=== PATIENT | female | born 1990 | race American Indian/Alaskan Native ===

== ENCOUNTER 2019-04-13 19:02 | Observation (INO) | payer OTHER ==
[2019-04-13 20:14] LABS: Bilirubin,Urine NEG (Negative); Blood,Urine NEG (Negative); Color,Urine Yellow (Yellow); Mucus,Urine FEW /HPF
[2019-04-13] MEDS ORDERED: LACTATED RINGERS 1,000 ML IV ONE ×2 (20:30→20:54)
[2019-04-13] MEDS ORDERED: diphenhydrAMINE 50 MG/ML VIAL IV ONE (20:54)
[2019-04-13] MEDS ORDERED: MORPHINE 4 MG/1 ML INJ IV ONE (20:55)
[2019-04-14] MEDS: LACTATED RINGERS 1,000 ML IV SCH ×3 (00:04→21:52)
[2019-04-14 00:19] LABS: Amphetamine Screen,Urine PRESUMPTIVE NEGATIVE; Benzodiazepines Screen,Urine PRESUMPTIVE NEGATIVE; Cannabinoid Screen,Urine PRESUMPTIVE NEGATIVE; Cocaine Screen,Urine PRESUMPTIVE NEGATIVE; Methadone Screen,Urine PRESUMPTIVE NEGATIVE; Opiate Screen,Urine PRESUMPTIVE NEGATIVE
[2019-04-14] MEDS: NalbUPHINE 10 MG/1 ML INJ IV PRN ×5 (01:20→21:30)
[2019-04-14] MEDS: ONDANSETRON 4 MG/2 ML INJ IV PRN ×4 (07:54→21:37)
[2019-04-14 08:49] LABS: Basophils % (Auto) 0.3 % (0.0-1.8); Eosinophils # (Auto) 0.1 K/mm3 (0.0-0.4); Eosinophils % (Auto) 0.8 % (0.0-4.3); Hematocrit 27.7 % (30.3-42.9); Hemoglobin 9.3 gm/dl (10.1-14.3); Lymphocytes # (Auto) 1.7 K/mm3 (1.2-5.4); Lymphocytes % (Auto) 23.5 % (13.4-35.0); Mean Corpuscular HGB Conc 34 % (30-34); Mean Corpuscular Volume 87 fl (79-97); Monocytes # (Auto) 0.7 K/mm3 (0.0-0.8); Monocytes % (Auto) 9.1 % (0.0-7.3); Platelet Count 255 K/mm3 (140-440); Red Cell Distribution Width 14.7 % (13.2-15.2)
[2019-04-14] MEDS ORDERED: PRENATAL VIT27-FE FUMARATE-FOLIC ACID VIT TAB PO SCH (10:00)
--- NOTE | 2019-04-15 00:34 | Ultrasound Report ---
Limited OB ultrasound for biophysical profile FINDINGS: CHRISTINA is normal at 10.9 cm. breathing, movement and CHRISTINA all score 2 out of 2. How ever, posture and tone score 0 for total score of 6/8. heart rate is 133 bpm. Signer Name: Porfirio Pickard MD Signed: 04/15/2019 12:30 AM Workstation Name: [id number]
[2019-04-15 03:37] VITALS: BP 122/79
--- NOTE | 2019-04-15 04:16 | Progress Note ---
Assessment and Plan A: IUP@ 37.4 wks Back pain CAT I FHT p: D/C home F/U with OB provider Adq hydration advised POC agrees with plan of care - Patient Problems (1) Back pain affecting Status: Acute Subjective - Subjective Date of service: 04/14/19 Principal diagnosis: IUP@ 37.4 wks with back pain Patient reports: movement normal Objective - Vital Signs Vital Signs: Vital Signs - 12hr 04/14/19 04/14/19 04/14/19 17:32 19:17 20:30 Temperature 97.4 F L 98.7 F Pulse Rate 69 82 82 Respiratory 16 18 Rate Blood Pressure 128/77 125/66 Blood Pressure 125/66 [Left] 04/14/19 22:53 Temperature Pulse Rate 70 Respiratory Rate Blood Pressure 122/79 Blood Pressure [Left] - Exam Abdomen: Present: normal appearance, soft Uterus: Present: normal FHR: category 1 Uterine Contraction Monitor Mode: External Cervical Dilatation: 4 Cervical Effacement Percentage: 80 station: -3 Uterine Contraction Frequency (min): irreg Uterine Contraction Pattern: Irregular Uterine Tone Measurement Phase: Resting Uterine Contraction Intensity: Mild Extremities: normal - Labs Labs: Abnormal Labs 04/13/19 04/14/19 20:00 07:49 RBC 3.20 L Hgb 9.3 L Hct 27.7 L [place] % (Auto) 9.1 H U Epithel Cells (Auto) 18.0 H Laboratory Results - last 24 hr 04/14/19 04/14/19 04/14/19 07:49 07:49 07:49 WBC 7.3 RBC 3.20 L Hgb 9.3 L Hct 27.7 L MCV 87 MCH 29 MCHC 34 RDW 14.7 Plt Count 255 Lymph % (Auto) 23.5 [place] % (Auto) 9.1 H Eos % (Auto) 0.8 Baso % (Auto) 0.3 Lymph # 1.7 [place] # 0.7 Eos # 0.1 Baso # 0.0 Seg Neutrophils % 66.3 Seg Neutrophils # 4.8 Syphilis IgG Antibody Non-reactive Blood Type AB POSITIVE Antibody Screen Negative
--- NOTE | 2019-04-15 07:34 | Ultrasound Report ---
Limited OB ultrasound FINDINGS: Single fetus is identified in vertex presentation. CHRISTINA is normal at 10.9 cm. Estimated feta l weight is 3010 grams. Appropriate measurements reveal an MA of 37 weeks 2 days for an EDC of 020. This correlates with the clinical dates. Biophysical profile FINDINGS: breathing, spontaneous motion, qualitative CHRISTINA all score 2. posture and tone sc ore 0 however for a total of 6/8. heart rate is 133 bpm. Signer Name: Porfirio Pickard MD Signed: 04/15/2019 7:30 AM Workstation Name: [id number]
== END 2019-04-14 23:30 | disposition home or self-care (01) ==
LOC: TRG 19:02 → LD 19:53 → TRG 19:53
PROVIDERS: ADMIT Obstetrics & Gynecology; ATTEND Obstetrics & Gynecology
DX: O26.893 Other specified pregnancy related conditions, third trimester (principal); M54.9 Dorsalgia, unspecified; Z3A.37 37 weeks gestation of pregnancy
CPT/HCPCS: 36415; 76816; 76819; 80307; 81001; 85025; 86592; 86850; 86900; 86901; 96374; 96375; 96376; G0378; J1200; J2270; J2300; J2405; J7120